=== PATIENT | male | born 1985 | race Caucasian/White ===

== ENCOUNTER 2019-10-10 10:08 | Emergency (ER) | payer OTHER, SELFPAY ==
[2019-10-10 10:10] VITALS: BP 155/98; PULSE 101; RESP 16; TEMP 36.8; O2SAT 99
--- NOTE | 2019-10-10 10:22 | W.ED.GENAD ---
Discharge Plan Disposition Patient Disposition: HOME Condition: Improving Discharge Details Chief Complaint: HeadInjury Clinical Impression: Concussion, Nausea & vomiting Primary Care Provider: Delfina,Local ED Provider: Ignacio Goldstein Home Meds and New Rx's Prescriptions: New ondansetron 4 mg tablet,disintegrating 4 mg PO Q8H Qty: 10 RF: 0 No Action No Known Home Meds RF: 0 Discharge Instructions Instructions: Concussion (ED), Acute Nausea and Vomiting (ED) Additional Instructions: Take Tylenol or ibuprofen every 6 hours as needed for discomfort. Use the nausea medicine that has been prescribed. Stay well-hydrated. Return to the emergency department immediately if you develop any fevers, weakness, difficulty breathing, or for any other concerning or worsening symptoms at all. Medical Decision Making This patient is a 34-year-old male who presents to the emergency department with multiple episodes of vomiting as well as diarrhea in the setting of recent head injury. Most likely this is due to a concussion but it could also be due to a viral gastroenteritis. Patient has no abdominal tenderness. He feels better after ketorolac, acetaminophen, ondansetron. He has been drinking. Therefore, the patient will be discharged home. He will be provided return precautions and discharge instructions. CT scan of the head does not show any acute abnormalities. HPI I hit my head. This patient is a 34-year-old male, otherwise healthy, who presents with hitting his head last night and working up this morning with multiple episodes of vomiting. He states that he vomited 10 times. He complains of a headache. He denies losing consciousness. He denies any numbness, tingling, neck pain. No other recent illness. He was drinking alcohol last night, he states he had about 3 or 4 drinks. He states that was less than he normally drinks. However, he denies being in alcohol withdrawal. He states this does not feel like alcohol withdrawal. He also had diarrhea today. He denies having any other viral symptoms such as achiness, abdominal pain, chest pain, difficulty breathing. He has not been around anyone else who has been sick. Nothing really has made him feel better or worse. General Date/Time Provider Initiated Documentation: 10/10/19 10:16. Related Data Home Medications Medication Instructions Recorded Confirmed Unknown [No Known Home Meds] 10/10/19 10/10/19 ondansetron 4 mg PO Q8H #10 tab 10/10/19 Previous Rx's Medication Instructions Recorded ondansetron 4 mg PO Q8H #10 tab 10/10/19 Allergies Allergy/AdvReac Type Severity Reaction Status Date / Time No Known Allergies Allergy Unverified 10/10/19 10:14 General Stated Complaint: HeadInjury LAYNE: 3 Review of Systems Narrative: Gen: no fevers. Card: no chest pain. Resp: No cough, difficulty breathing. Abd: vomiting, abd pain. The rest of the 10 point review of systems is negative except as described in the HPI and above in the ROS. [facility] Social History Smoking/Tobacco Use Status: Never Alcohol Intake: current Drug use: Daily Substance use type: marijuana Exam Narrative Exam Narrative: Gen: no acute distress, alert. Eyes: Pupils equal, reactive to light, EOMs intact. ENT: nose and ears normal, posterior pharynx without injection or swelling. Neck: normal ROM. Lung: Clear to auscultation bilaterally, no respiratory distress. Card: RRR, normal S1, S2, no M/R/G. 2+ radial pulses bilaterally. Abd: soft, non-tender, no hepatosplenomegaly. Upper extremity: no evidence of trauma. Lower extremity: no edema. Neuro: speech normal, no gross motor deficits. Psych: alert and oriented to person, place time, normal affect. Skin: warm, intact. Course Vital Signs Vital signs: Vital Signs Temperature 36.8 C 10/10/19 10:10 Pulse 101 H 10/10/19 10:10 Respiratory Rate 16 10/10/19 10:10 Blood Pressure 155/98 H 10/10/19 10:10 Pulse Oximetry 99 10/10/19 10:10 Temperature 36.8 C 10/10/19 10:10 Temperature Source Skin 10/10/19 10:10 Pulse 101 H 10/10/19 10:10 Respiratory Rate 16 10/10/19 10:10 Respiratory Effort Non-Labored 10/10/19 10:14 Blood Pressure 155/98 H 10/10/19 10:10 Blood Pressure Position Sitting 10/10/19 10:10 Pulse Oximetry 99 10/10/19 10:10 Oxygen Delivery Method Room Air 10/10/19 10:10 Oxygen Flow Rate 0 10/10/19 10:10 Pain Level 2 10/10/19 10:10
[2019-10-10] MEDS: Ondansetron O.D.T. 4 MG TABEF PO ×2 (10:28→12:46)
--- NOTE | 2019-10-10 10:40 | DI.CT_ITS ---
EXAM: CT HEAD WO CLINICAL HISTORY: hit head, multiple episodes of vomiting. TECHNIQUE: COMPARISON: No exams were available for comparison FINDINGS: Noncontrast cranial CT was performed. There is mild mucoperiosteal thickening of ethmoid air cells. Otherwise visualized paranasal sinuses and mastoid air cells appear clear. The orbital structures a ppear intact. No evidence of acute intracranial hemorrhage, mass effect, or midline shift. Ventricular system is n ormal in appearance No evidence of a calvarial fracture. IMPRESSION: No evidence of acute intracranial injury.
--- NOTE | 2019-10-10 10:51 | DI.VRAD_ITS ---
PROCEDURE INFORMATION: Exam: CT Head Without Contrast Exam date and time: 10/10/2019 10:33 AM Age: 34 years old Clinical indication: Other: Hit head, multiple episodes of vomiting TECHNIQUE: Imaging protocol: Computed tomography of the head without contrast. Radiation optimization: All CT scans at this facility use at least one of these dose optimization techniques: automated exposure control; mA and/or kV adjustment per patient size (includes targeted exams where dose is matched to clinical indication); or iterative reconstruction. COMPARISON: No relevant prior studies available. FINDINGS: Brain: Normal. No hemorrhage. Unremarkable white matter. No mass effect. Ventricles: Normal. No ventriculomegaly. Bones/joints: Unremarkable. No acute fracture. Sinuses: Partial opacification of the ethmoid sinuses. No air-fluid levels. Mastoid air cells: Visualized mastoid air cells are well aerated. Soft tissues: Unremarkable. IMPRESSION: No acute intracranial findings. Dictated and Authenticated by: Denny Patel MD. Ordering:KENJI Pierre MD
[2019-10-10] MEDS: Ketorolac 30 MG/ML VIAL IM (11:06)
[2019-10-10] MEDS: Acetaminophen 500 MG TAB 1000 MG PO (11:07)
[2019-10-10 12:51] VITALS: BP 142/78; PULSE 891; RESP 16; TEMP 36.8
== END 2019-10-10 13:06 | disposition home or self-care (01) ==
PROVIDERS: Emergency Provider Emergency Medicine
DX: S06.0X0A Concussion without loss of consciousness, initial encounter (principal); W22.8XXA Striking against or struck by other objects, initial encounter
CPT/HCPCS: 96372; 99285; 70450; 99284; J1885